=== PATIENT | male | born 1965 | race Caucasian/White ===

== ENCOUNTER 2021-11-23 17:49 | Emergency (ER) | payer SELFPAY ==
[2021-11-23] MEDS ORDERED: Acetaminophen 500 MG TAB ONE (19:10)
[2021-11-23] MEDS ORDERED: predniSONE 20 MG TAB ONE (19:36)
== END 2021-11-23 19:41 | disposition home or self-care (01) ==
LOC: MADERS 17:49
DX: U07.1 COVID-19 (principal); J06.9 Acute upper respiratory infection, unspecified; H66.92 Otitis media, unspecified, left ear; F17.220 Nicotine dependence, chewing tobacco, uncomplicated
CPT/HCPCS: 99283; J7512; U0003; U0005

== ENCOUNTER 2025-01-08 19:55 | Emergency (ER) | payer SELFPAY ==
[~2025-01-08 19:55] MED LIST: Iopamidol 370 76% 100 ML VIAL ONE
[2025-01-08] MEDS ORDERED: Acetaminophen 500 MG TAB ONE (20:51)
[2025-01-08] MEDS ORDERED: Ketorolac Tromethamine 30 MG (1 mL) VIAL ONE (20:51)
[2025-01-08] MEDS ORDERED: Cyclobenzaprine 10 MG TAB ONE (20:52)
[2025-01-08 21:00] LABS: Hematocrit 44.5 % (42.0-52.0); Hemoglobin 14.7 g/dL (14.0-18.0); MDiff Complete? YES; Mean Corpuscular Hemoglobin 28.7 pg (27.0-31.0); Mean Corpuscular Volume 86.9 fl (78.0-98.0); Platelet Count 263 10x3/uL (130-400); Red Blood Cell (RBC) Count 5.13 mill/uL (4.70-6.10); White Blood Cell (WBC) Count 11.5 10x3/uL (4.8-10.8)
[2025-01-08 21:16] LABS: ALT (SGPT) 168 U/L (Less than 45); AST (SGOT) 148 U/L (11-34); Albumin 3.7 g/dL (3.1-4.5); Alkaline Phosphatase 115 U/L (40-110); Anion Gap 16 mmol/L (10-20); BUN (Urea Nitrogen) 12 mg/dL (8.4-25.7); Bilirubin, Total 2.9 mg/dL (0.3-1.2); CK (CPK) 122 U/L (30-200); Calc. Creatinine Clearance 0 mL/min (70-130); Calcium 8.4 mg/dL (7.8-10.44); Carbon Dioxide 23 mmol/L (22-29); Chloride 105 mmol/L (98-107); Globulin 2.8 g/dL (2.4-3.5); Glucose 126 mg/dL (70-105); Potassium 4.1 mmol/L (3.5-5.1); Sodium 140 mmol/L (136-145)
== END 2025-01-09 01:10 | disposition short-term general hospital (02) ==
LOC: MADERS 19:55
DX: K85.90 Acute pancreatitis without necrosis or infection, unspecified (principal); R74.01 Elevation of levels of liver transaminase levels; F19.10 Other psychoactive substance abuse, uncomplicated; F17.220 Nicotine dependence, chewing tobacco, uncomplicated
CPT/HCPCS: 36415; 74177; 80053; 82550; 83605; 83690; 85025; 96372; J1885; J7120; Q9967

== ENCOUNTER 2025-04-22 13:11 | Emergency (ER) | payer OTHER ==
[2025-04-22] MEDS ORDERED: Ondansetron PF 4 MG/2 ML Vial ONE (13:35)
[2025-04-22] MEDS ORDERED: Ketorolac Tromethamine 30 MG (1 mL) VIAL ONE (13:35)
[2025-04-22 13:54] LABS: #Basophils 0.1 thou/uL (0.0-0.2); #Eosinophils 0.0 thou/uL (0.0-0.7); #Lymphocytes 1.8 thou/uL (1.20-3.40); #Monocytes 0.6 thou/uL (0.11-0.59); #Neutrophils 12.3 thou/uL (1.40-6.50); %Basophils 0.9 % (0.0-1.0); %Eosinophils 0.3 % (0.0-10.0); %Lymphocytes 12.0 % (21.0-51.0); %Monocytes 4.3 % (0.0-10.0); %Neutrophils 82.5 % (42.0-75.0); Hematocrit 51.6 % (42.0-52.0); Hemoglobin 16.2 g/dL (14.0-18.0); Mean Corpuscular Hemoglobin 28.0 pg (27.0-31.0); Mean Corpuscular Volume 89.4 fl (78.0-98.0); Platelet Count 283 10x3/uL (130-400); Red Blood Cell (RBC) Count 5.77 mill/uL (4.70-6.10); White Blood Cell (WBC) Count 14.9 10x3/uL (4.8-10.8)
[2025-04-22 14:07] LABS: ALT (SGPT) 173 U/L (Less than 45); AST (SGOT) 97 U/L (11-34); Albumin 3.9 g/dL (3.1-4.5); Alkaline Phosphatase 127 U/L (40-110); Anion Gap 13 mmol/L (10-20); BUN (Urea Nitrogen) 12 mg/dL (8.4-25.7); Bilirubin, Total 1.2 mg/dL (0.3-1.2); Calc. Creatinine Clearance 0 mL/min (70-130); Calcium 9.2 mg/dL (7.8-10.44); Carbon Dioxide 25 mmol/L (22-29); Chloride 104 mmol/L (98-107); Globulin 3.4 g/dL (2.4-3.5); Glucose 112 mg/dL (70-105); Potassium 4.4 mmol/L (3.5-5.1); Sodium 138 mmol/L (136-145)
[2025-04-22 15:16] LABS: Lipase 1282 U/L (8-78)
== END 2025-04-22 17:35 | disposition short-term general hospital (02) ==
LOC: MADERS 13:11
DX: K85.90 Acute pancreatitis without necrosis or infection, unspecified (principal); F17.220 Nicotine dependence, chewing tobacco, uncomplicated
CPT/HCPCS: 36415; 74177; 80053; 83690; 85025; 96374; 96375; J1885; J2405; J3010; Q9967